=== PATIENT | male | born 1975 | race Caucasian/White ===

== ENCOUNTER 2020-08-29 08:06 | Emergency (ER) | payer OTHER ==
[2020-08-29 08:11] VITALS: BP 131/78; BMI 30.9
[2020-08-29] MEDS ORDERED: ACETAMINOPHEN 325 MG TABLET (FP) PO ONE (08:12)
[2020-08-29] MEDS ORDERED: ACETAMINOPHEN 500 MG TABLET (FP) ONE (08:13)
[2020-08-29] MEDS ORDERED: ACETAMINOPHEN 325 MG TABLET (FP) ONE (08:23)
[2020-08-29 09:26] VITALS: PULSE 94; TEMP 100.2
== END 2020-08-29 10:21 | disposition home or self-care (01) ==
LOC: JER 08:06
DX: U07.1 COVID-19 (principal)
CPT/HCPCS: 71046-TC-FY; 99282-25; C9803; U0003

== ENCOUNTER 2020-09-04 07:27 | Inpatient (IN) | payer OTHER ==
[2020-09-04] MEDS ORDERED: guaiFENesin 200 MG/10 ML 10 ML UNIT-DOSE CUPS PO ONE (10:56)
[2020-09-04] MEDS ORDERED: DEXAMETHASONE SOD PHOSPHATE 4 MG/1 ML VIAL IVPUSH ONE (10:57)
[2020-09-04] MEDS ORDERED: guaiFENesin/D-METHORPHAN HB 10 ML UNIT-DOSE CUPS ONE (11:08)
[2020-09-04] MEDS ORDERED: DEXAMETHASONE SOD PHOSPHATE 4 MG/1 ML VIAL ONE (11:08)
[2020-09-04 12:19] LABS: BASO % 0.3 % (0-2.0); EOS % 1.4 % (0-4.5); HEMATOCRIT 39.3 % (35.4-49); HEMOGLOBIN 13.7 GM/dL (11.7-16.9); LYMPH % 20.3 % (8-40); MCH 32.1 pg (25.7-33.7); MCHC 34.9 g/dl (32.0-35.9); MEAN CELL VOLUME 92.1 fl (80-96); MONO % 8.6 % (3.8-10.2); NEUT % 69.4 % (42.8-82.8); PLATELET COUNT 209 K/MM3 (134-434); RBC 4.27 M/mm3 (4.00-5.60); RDW 13.4 % (11.9-15.9); WHITE BLOOD COUNT 8.1 K/mm3 (4.0-10.0)
[2020-09-04 12:26] LABS: INR 1.08 (0.83-1.09); PROTHROMBIN TIME (PATIENT) 13.3 SEC (9.7-13.0)
[2020-09-04 12:28] LABS: ACTIVATED PTT 29.3 SECONDS (25.2-36.5)
[2020-09-04 12:35] LABS: VENOUS BASE EXCESS 7.8 mmol/L (-2-2); VENOUS O2 SATURATION 47.5 % (70-80); VENOUS PCO2 48.3 mmHg (38-52); VENOUS PH 7.449 (7.310-7.410)
[2020-09-04 12:39] LABS: CHLORIDE 100 mmol/L (98-107); SODIUM 138 mmol/L (136-145)
[2020-09-04 12:42] LABS: CALCIUM 8.3 mg/dL (8.5-10.1)
[2020-09-04 12:43] LABS: BLOOD UREA NITROGEN 18.1 mg/dL (7-18); CO2 32 mmol/L (21-32)
[2020-09-04 12:44] LABS: GLUCOSE,RANDOM 98 mg/dL (74-106)
[2020-09-04 12:45] LABS: BILIRUBIN,DIRECT 0.2 mg/dL (0.0-0.2); CREATININE 0.7 mg/dL (0.55-1.3); SGOT/AST 66 U/L (15-37); SGPT/ALT 86 U/L (13-61)
[2020-09-04 12:47] LABS: BILIRUBIN,TOTAL 0.7 mg/dL (0.2-1); TOT PROT 7.1 g/dl (6.4-8.2)
[2020-09-04 12:48] LABS: ALK PHOS 101 U/L (45-117)
[2020-09-04 12:49] LABS: LDH 575 U/L (87-246)
[2020-09-04 12:51] LABS: ANION GAP 6 MMOL/L (8-16); POTASSIUM 3.9 mmol/L (3.5-5.1)
[2020-09-04] MEDS: APIXABAN 5 MG TABLET PO SCH ×2 (15:33→23:48)
[2020-09-04] MEDS: SODIUM CHLORIDE 1,000 ML IV SCH (15:33)
[2020-09-04] MEDS ORDERED: APIXABAN 5 MG TABLET ONE (15:38)
[2020-09-04] MEDS ORDERED: CEFTRIAXONE 1 GM in DEXTROSE 5%-WATER - 50 ML IVPB ONE (16:46)
[2020-09-04 16:55] VITALS: BMI 32.3
[2020-09-04] MEDS: ASCORBIC ACID 500 MG TABLET (FP) PO SCH (18:41)
[2020-09-04] MEDS: FAMOTIDINE 20 MG/50 ML IVPB 20 MG/50 ML MG IVPB SCH (18:41)
[2020-09-04] MEDS: ZINC SULFATE 220 MG CAPSULE (FP) PO SCH (18:41)
[2020-09-04] MEDS ORDERED: cefTRIAXone SODIUM 1 GM VIAL ONE (20:20)
[2020-09-04] MEDS ORDERED: DEXTROSE 5%-WATER - 50 ML IVPB ONE (20:20)
[2020-09-04 20:34] LABS: EPI CELLS 13 /uL (0-25.1); HYALINE CASTS 1 /uL (0-3.1); PH,URINE 5.5 (5.0-8.0); URINE APPEARANCE CLEAR; URINE BACTERIA 43 /uL (0-1359); URINE BILIRUBIN NEGATIVE (NEGATIVE); URINE COLOR YELLOW; URINE GLUCOSE (UA) NEGATIVE (NEGATIVE); URINE KETONE NEGATIVE (NEGATIVE); URINE LEUK ESTERASE NEGATIVE (NEGATIVE); URINE NITRITE NEGATIVE (NEGATIVE); URINE PROTEIN 1+ (NEGATIVE); URINE WBC 9 /uL (0-25.8)
[2020-09-04] MEDS: AZITHROMYCIN IVPB 500 MG/250 ML BAG IVPB SCH (23:48)
[2020-09-04 23:53] LABS: URINE RBC 1269.7 /uL (0-23.9)
[2020-09-05] MEDS: SODIUM CHLORIDE 1,000 ML IV SCH ×2 (06:27→17:40)
[2020-09-05 08:51] LABS: BASO % 0.3 % (0-2.0); EOS % 0.3 % (0-4.5); HEMATOCRIT 36.8 % (35.4-49); LYMPH % 23.3 % (8-40); MCH 32.5 pg (25.7-33.7); MCHC 35.4 g/dl (32.0-35.9); MEAN CELL VOLUME 91.8 fl (80-96); MEAN PLT VOLUME 9.1 fl (7.5-11.1); MONO % 9.9 % (3.8-10.2); NEUT % 66.2 % (42.8-82.8); PLATELET COUNT 237 K/MM3 (134-434); RBC 4.01 M/mm3 (4.00-5.60); RDW 13.1 % (11.9-15.9); WHITE BLOOD COUNT 7.9 K/mm3 (4.0-10.0)
[2020-09-05] MEDS ORDERED: guaiFENesin/D-METHORPHAN HB 10 ML UNIT-DOSE CUPS PO PRN (09:11)
[2020-09-05 09:18] LABS: POTASSIUM 4.2 mmol/L (3.5-5.1)
[2020-09-05 09:32] LABS: ALBUMIN 2.7 g/dl (3.4-5.0); BLOOD UREA NITROGEN 17.8 mg/dL (7-18); PHOSPHOROUS 2.9 mg/dL (2.5-4.9)
[2020-09-05 09:34] LABS: BILIRUBIN,TOTAL 0.6 mg/dL (0.2-1); TOT PROT 6.9 g/dl (6.4-8.2)
[2020-09-05 09:35] LABS: CREATININE 0.7 mg/dL (0.55-1.3); MAGNESIUM 2.8 mg/dL (1.8-2.4)
[2020-09-05 10:04] LABS: CALCIUM 8.2 mg/dL (8.5-10.1)
[2020-09-05] MEDS ORDERED: cefTRIAXone SODIUM 1 GM VIAL ONE (10:55)
[2020-09-05] MEDS ORDERED: DEXTROSE 5%-WATER - 50 ML IVPB ONE (10:55)
[2020-09-05] MEDS: ZINC SULFATE 220 MG CAPSULE (FP) PO SCH (10:59)
[2020-09-05] MEDS: FAMOTIDINE 20 MG/50 ML IVPB 20 MG/50 ML MG IVPB SCH (10:59)
[2020-09-05] MEDS: ASCORBIC ACID 500 MG TABLET (FP) PO SCH (10:59)
[2020-09-05] MEDS: AZITHROMYCIN IVPB 500 MG/250 ML BAG IVPB SCH (11:00)
[2020-09-05] MEDS: CEFTRIAXONE 1 GM in DEXTROSE 5%-WATER - 50 ML IVPB SCH (11:00)
[2020-09-05] MEDS: APIXABAN 5 MG TABLET PO SCH (11:00)
[2020-09-05] MEDS: DEXAMETHASONE SOD PHOSPHATE 10 MG/1 ML VIAL IVPUSH SCH (11:06)
[2020-09-05] MEDS ORDERED: REMDESIVIR 200 MG in SODIUM CHLORIDE 210 ML IVPB ONE (16:05)
[2020-09-05] MEDS: ENOXAPARIN NA (PORCINE) 100 MG/1 ML DISP.SYRIN SQ SCH (21:16)
[2020-09-06 09:12] LABS: HEMATOCRIT 37.7 % (35.4-49); HEMOGLOBIN 13.4 GM/dL (11.7-16.9); MCH 32.5 pg (25.7-33.7); MCHC 35.5 g/dl (32.0-35.9); MEAN CELL VOLUME 91.5 fl (80-96); MEAN PLT VOLUME 8.5 fl (7.5-11.1); PLATELET COUNT 309 K/MM3 (134-434); RBC 4.12 M/mm3 (4.00-5.60); RDW 13.3 % (11.9-15.9); WHITE BLOOD COUNT 10.5 K/mm3 (4.0-10.0)
[2020-09-06] MEDS ORDERED: DEXTROSE 5%-WATER - 50 ML IVPB ONE (09:14)
[2020-09-06] MEDS ORDERED: cefTRIAXone SODIUM 1 GM VIAL ONE (09:14)
[2020-09-06 09:16] LABS: POTASSIUM 4.3 mmol/L (3.5-5.1)
[2020-09-06 09:20] LABS: ALBUMIN 2.7 g/dl (3.4-5.0); CALCIUM 8.3 mg/dL (8.5-10.1)
[2020-09-06 09:24] LABS: CREATININE 0.7 mg/dL (0.55-1.3)
[2020-09-06 09:25] LABS: BILIRUBIN,TOTAL 0.5 mg/dL (0.2-1); TOT PROT 6.6 g/dl (6.4-8.2)
[2020-09-06] MEDS ORDERED: PT OWN MED DRAWER 7, Y5N ONE (09:48)
[2020-09-06] MEDS: DEXAMETHASONE SOD PHOSPHATE 10 MG/1 ML VIAL IVPUSH SCH (09:49)
[2020-09-06] MEDS: CEFTRIAXONE 1 GM in DEXTROSE 5%-WATER - 50 ML IVPB SCH (09:50)
[2020-09-06] MEDS: ZINC SULFATE 220 MG CAPSULE (FP) PO SCH (09:50)
[2020-09-06] MEDS: ENOXAPARIN NA (PORCINE) 100 MG/1 ML DISP.SYRIN SQ SCH ×2 (09:50→21:50)
[2020-09-06] MEDS: ASCORBIC ACID 500 MG TABLET (FP) PO SCH (09:50)
[2020-09-06] MEDS: AZITHROMYCIN IVPB 500 MG/250 ML BAG IVPB SCH (09:51)
[2020-09-06] MEDS: FAMOTIDINE 20 MG/50 ML IVPB 20 MG/50 ML MG IVPB SCH (09:51)
[2020-09-06] MEDS: REMDESIVIR 100 MG in SODIUM CHLORIDE 230 ML IVPB SCH (17:12)
[2020-09-07] MEDS: FAMOTIDINE 20 MG/50 ML IVPB 20 MG/50 ML MG IVPB SCH (09:30)
[2020-09-07 09:41] LABS: HEMATOCRIT 42.5 % (35.4-49); HEMOGLOBIN 14.5 GM/dL (11.7-16.9); MCH 31.8 pg (25.7-33.7); MCHC 34.2 g/dl (32.0-35.9); MEAN CELL VOLUME 93.1 fl (80-96); MEAN PLT VOLUME 8.9 fl (7.5-11.1); PLATELET COUNT 358 K/MM3 (134-434); RBC 4.56 M/mm3 (4.00-5.60); RDW 12.9 % (11.9-15.9); WHITE BLOOD COUNT 11.3 K/mm3 (4.0-10.0)
[2020-09-07 09:59] LABS: POTASSIUM 4.4 mmol/L (3.5-5.1)
[2020-09-07 10:10] LABS: CREATININE 0.7 mg/dL (0.55-1.3)
[2020-09-07 10:12] LABS: BILIRUBIN,TOTAL 0.4 mg/dL (0.2-1); TOT PROT 7.1 g/dl (6.4-8.2)
[2020-09-07] MEDS: ENOXAPARIN NA (PORCINE) 100 MG/1 ML DISP.SYRIN SQ SCH (10:44)
[2020-09-07] MEDS: REMDESIVIR 100 MG in SODIUM CHLORIDE 230 ML IVPB SCH (10:45)
[2020-09-07] MEDS: ZINC SULFATE 220 MG CAPSULE (FP) PO SCH (10:45)
[2020-09-07] MEDS: ASCORBIC ACID 500 MG TABLET (FP) PO SCH (10:46)
[2020-09-07] MEDS: DEXAMETHASONE SOD PHOSPHATE 10 MG/1 ML VIAL IVPUSH SCH (11:42)
[2020-09-07 12:32] VITALS: BP 120/61; PULSE 64; TEMP 98.4
[2020-09-07] MEDS ORDERED: cefTRIAXone SODIUM 1 GM VIAL ONE (12:52)
[2020-09-07] MEDS ORDERED: DEXTROSE 5%-WATER - 50 ML IVPB ONE (12:53)
[2020-09-07] MEDS: CEFTRIAXONE 1 GM in DEXTROSE 5%-WATER - 50 ML IVPB SCH (12:54)
[2020-09-07] MEDS: AZITHROMYCIN IVPB 500 MG/250 ML BAG IVPB SCH (13:21)
== END 2020-09-07 15:25 | disposition home or self-care (01) | DRG 137 ==
LOC: JER 07:27 → JERBED 13:01 → J5S 16:15
PROVIDERS: ADMIT Internal Medicine
PROC: XW033E5 Introduction of Remdesivir Anti-infective into Peripheral Vein, Percutaneous Approach, New Technology Group 5 (ICD-10-PCS; principal; 2020-09-05)
DX: U07.1 COVID-19 (principal); J12.82 Pneumonia due to coronavirus disease 2019; J96.01 Acute respiratory failure with hypoxia; E66.9 Obesity, unspecified; Z68.32 Body mass index [BMI] 32.0-32.9, adult; I10 Essential (primary) hypertension; E78.5 Hyperlipidemia, unspecified
CPT/HCPCS: 36415; 71045-TC-FY; 80053; 81003; 82248; 82550; 82553; 82728; 82803; 83605; 83615; 83735; 84100; 84484; 85025; 85027; 85379; 85610; 85651; 85730; 86140; 86769; 87040; 87086; 87804; 93005; 93010; 94761; 97116-GP; 97161-GP; 99285-25; C9399; C9803; J1100; U0003